=== PATIENT | female | born 1990 | race Caucasian/White ===

== ENCOUNTER 2021-07-18 09:00 | Outpatient (RCR) | payer MEDICAID, SELFPAY | END 2021-07-19 08:00 | disposition home or self-care (01) | LOC: HO.PT 09:00 | PROVIDERS: PCP Nurse Practitioner Family; Visit Provider Physical Medicine & Rehabilitation | DX: M54.6 Pain in thoracic spine (principal); M79.12 Myalgia of auxiliary muscles, head and neck | CPT/HCPCS: 97110; 97112; 97140; 97162 ==